=== PATIENT | male | born 1980 | race Two or more races ===

== ENCOUNTER 2017-12-21 21:11 | Emergency (ER) | payer BC, OTHER ==
[~2017-12-21] VITALS: Ht 162.6 cm; Wt 77.1 kg
[2017-12-21] MEDS ORDERED: NKM (21:22)
[2017-12-21 21:25] VITALS: BP 148/91
--- NOTE | 2017-12-21 21:47 | Emergency Room Report ---
History of Present Illness General Chief Complaint: General Complaint Source: Patient Present Illness HPI This is a 37-year-old male presents with bleeding from his right jaw area. No trauma. There was spontaneous bleeding. His been bleeding on and off for last 4 hours. Stop with pressure. When he cleaned it is all bleeding again. She was symptom when he was shaving currently on the left side. Denies any other complaint. Allergies: Coded Allergies: No Known Allergies (Unverified , 12/21/17) Patient History Past Medical History: see triage record, old chart reviewed Past Surgical History: none Pertinent Family History: none Social History: Denies: smoking Immunizations: other Reviewed Nursing Documentation: PMH: Agreed; PSxH: Agreed Nursing Documentation-PMH Hx Hypertension: Yes Hx Diabetes: Yes Review of Systems Eye: Denies: eye pain, blurred vision ENT: Denies: ear pain, nose congestion, throat swelling Respiratory: Denies: cough, shortness of breath Cardiovascular: Denies: chest pain, palpitations Gastrointestinal: Denies: abdominal pain, diarrhea, nausea, vomiting Musculoskeletal: Denies: back pain, joint pain Skin: Denies: rash Neurological: Denies: headache, numbness Endocrine: Denies: increased thirst, increased urine Hematologic/Lymphatic: Denies: easy bruising All Other Systems: negative except mentioned in HPI Physical Exam Vital Signs Date Time Temp Pulse Resp B/P (MAP) Pulse Ox O2 Delivery O2 Flow Rate FiO2 12/21/17 21:16 97.9 100 16 148/91 93 Room Air 97.9 vitals normal Sp02 EP Interpretation: reviewed, normal General Appearance: well appearing, no apparent distress, alert Head: normocephalic, atraumatic Eyes: bilateral eye PERRL, bilateral eye EOMI ENT: hearing grossly normal, normal pharynx, other - right jaw/neck area: is a pinpoint wound with oozing of blood. Neck: full range of motion, supple, no meningismus Respiratory: chest non-tender, lungs clear, normal breath sounds Cardiovascular #1: regular rate, rhythm, no murmur Gastrointestinal: normal bowel sounds, non tender, no mass, no organomegaly, no bruit, non-distended Musculoskeletal: back normal, gait/station normal, normal range of motion Psychiatric: mood/affect normal Skin: warm/dry Procedures Laceration/Wound Repair Laceration/Wound Repair : Consent: Verbal Wound Location: face Wound Length (cm): 0 Wound Explored: clean Anesthesia: 1% Lidocaine Volume Anesthetic (ccs): 1 Wound Repaired With: sutures Suture Size/Type: 5:0, other - chromic Patient Tolerated: Well Complications: None Medical Decision Making Diagnostic Impression: Primary Impression: Bleeding of blood vessel ER Course Patient presents with bleeding probably from a small blood vessel. I place one suture in it stopped the bleeding. We'll discharge home. No evidence of any foreign body or trauma. Last Vital Signs Date Time Temp Pulse Resp B/P (MAP) Pulse Ox O2 Delivery O2 Flow Rate FiO2 12/21/17 21:25 97.9 100 16 148/91 93 Room Air 97.9 Status: improved Disposition: HOME, SELF-CARE Condition: Stable Additional Instructions: Follow-up your Dr. in 7 days. Hold pressure if bleeding. Suture will fall off. Return if worse. ANATOLY ALCARAZ M.D. Dec 21, 2017 21:47
[2017-12-21 21:50] VITALS: BP 148/91
== END 2017-12-21 21:50 | disposition home or self-care (01) ==
LOC: EMR 21:25
DX: S01.80XA Unspecified open wound of other part of head, initial encounter (principal); X58.XXXA Exposure to other specified factors, initial encounter; Y92.9 Unspecified place or not applicable; I10 Essential (primary) hypertension; E11.9 Type 2 diabetes mellitus without complications
CPT/HCPCS: 99284